=== PATIENT | female | born 1985 | race Caucasian/White ===

== ENCOUNTER 2025-01-04 08:57 | Outpatient (CLI) | payer BC, SELFPAY ==
[2025-01-07 02:30] LABS: HPV Source Cervical; HPV, High Risk by TMA Not Detected
== END 2025-01-04 08:58 | disposition home or self-care (01) ==
PROVIDERS: PCP Emergency Medicine; Visit Provider Emergency Medicine
DX: Z00.00 Encounter for general adult medical examination without abnormal findings (principal); Z13.6 Encounter for screening for cardiovascular disorders; Z13.21 Encounter for screening for nutritional disorder; Z13.1 Encounter for screening for diabetes mellitus; Z11.51 Encounter for screening for human papillomavirus (HPV); Z12.4 Encounter for screening for malignant neoplasm of cervix
CPT/HCPCS: 80061; 82607; 82947; 87624; 87625; 88141; 88142